=== PATIENT | female | born 1965 | race Caucasian/White ===

== ENCOUNTER 2019-11-05 09:44 | Emergency (ER) | payer SELFPAY ==
[2019-11-05] MEDS ORDERED: HYDROcodone 5MG/APAP 325MG 1 EA TAB PO ONE (09:57)
--- NOTE | 2019-11-05 09:59 | ED.PDOC ---
History of Present Illness - General Chief Complaint: Lower Extremity Injury Stated Complaint: R ankle injury Time Seen by Provider: 11/05/19 09:49 - History of Present Illness Initial Comments: 54yo F who presents with R ankle pain s/p fall from estimated 10 feet. Fall was accidental. She can bear weight with pain. She denies R knee or hip pain. No upper or lower back pain. No head or neck injury. Denies abd or chest pain. No associated syncope. No other reported issues. Allergies/Adverse Reactions: Allergies NO KNOWN ALLERGY Allergy (Verified 11/05/19 09:58) Home Medications: Ambulatory Orders Atenolol [Tenormin] 50 mg PO DAILY 11/05/19 Thyroid 15 mg PO DAILY 11/05/19 amLODIPine BESYLATE [Norvasc] 5 mg PO DAILY 11/05/19 Review of Systems - Review of Systems Constitutional: Denies: chills, fever EENTM: Denies: eye pain, double vision Respiratory: Denies: cough, short of breath Cardiology: Denies: chest pain, edema, palpitations, syncope Gastrointestinal/Abdominal: Denies: abdominal pain, vomiting Musculoskeletal: States: joint pain, joint swelling. Denies: back pain, neck pain Skin: Denies: change in color, rash Neurological: Denies: headache, numbness, weakness Family Medical History - Family History Mother Family History: No Known Living Status: Still Living Physical Exam - Physical Exam General Appearance: Alert, Comfortable Eyes, Ears, Nose, Throat: normal ENT inspection, pharynx normal Neck: non-tender, full range of motion, supple Cardiovascular/Respiratory: regular rate, rhythm, normal peripheral pulses Gastrointestinal/Abdominal: non-tender - no bruising Back: normal inspection, no vertebral tenderness Thigh/Hip: normal inspection, non-tender Leg: normal inspection, non-tender Knee: normal inspection, non-tender Ankle: swelling - R ankle with swelling and tenderness, mostly lateral. NV intact. Foot: normal inspection, non-tender Neuro/Tendon: normal sensation, normal motor functions Mental Status: alert, oriented x 3 Skin: normal color, warm/dry Progress - Progress Progress: 11/05/19 10:40 Results discussed with patient. She understands to follow up with orthopedics. She is to return to the ER with any new or worsening symptoms or any other concerns. - EKG/XRAY/CT XRAY: ankle - Lateral mal fracture (chip). See formal read. Departure - Departure Clinical Impression: Fracture due to fall, Fracture of ankle, lateral malleolus, right, closed Time of Disposition: 10:36 Disposition: Discharge to Home or Self Care Condition: Good Departure Forms: ED Discharge - Pt. Copy, Patient Portal Self Enrollment Instructions: DI for Leg Pain Referrals: BRAYDON OLIVIRE [Primary Care Provider] - 1-2 Weeks Freddie Rodriguez MD [Active Staff] - 1-2 Weeks Home Medications: Ambulatory Orders Atenolol [Tenormin] 50 mg PO DAILY 11/05/19 Thyroid 15 mg PO DAILY 11/05/19 amLODIPine BESYLATE [Norvasc] 5 mg PO DAILY 11/05/19
--- NOTE | 2019-11-05 10:24 | RAD ---
EXAM: XR Right Ankle Complete, 3 or More Views CLINICAL HISTORY: fall TECHNIQUE: Frontal, lateral and oblique views of the right ankle. COMPARISON: No relevant prior studies available. FINDINGS: Limitations: None. Bones/joints: Small fracture fragments noted off the tip of the lateral malleolus. Small plantar calcaneal spur. No dislocation. Soft tissues: Lateral soft tissue swelling present. IMPRESSION: Small fracture fragments noted off the tip of the lateral malleolus. Electronically signed by: Amalia Awad MD 11/05/2019 10:22 AM [facility]
--- NOTE | 2019-11-05 10:33 | RAD ---
EXAM: XR Right Ankle Complete, 3 or More Views CLINICAL HISTORY: fall TECHNIQUE: Frontal, lateral and oblique views of the right ankle. COMPARISON: No relevant prior studies available. FINDINGS: Limitations: None. Bones/joints: Small fracture fragments noted off the tip of the lateral malleolus. Small plantar calcaneal spur. No dislocation. Soft tissues: Lateral soft tissue swelling present. IMPRESSION: Small fracture fragments noted off the tip of the lateral malleolus. Electronically signed by: Amalia Awad MD 11/05/2019 10:[address] [facility]
[2019-11-05 11:42] VITALS: BP 137/80; TEMP 97; O2SAT 96
== END 2019-11-05 11:25 | disposition home or self-care (01) ==
LOC: ER 09:44
DX: S82.62XA Displaced fracture of lateral malleolus of left fibula, initial encounter for closed fracture (principal); W17.89XA Other fall from one level to another, initial encounter; Y92.9 Unspecified place or not applicable